=== PATIENT | male | born 1955 | race Caucasian/White ===

== ENCOUNTER 2017-02-23 19:26 | Emergency (ER) | payer OTHER ==
--- NOTE | 2017-02-23 20:17 | ER NURSING DOCUMENTATION ---
Nurse's Notes [facility] Name:Dez Nogueira Age:61 yrs Sex:Male :1955 Arrival Date:02/23/2017 Time:19:26 Bed6 Private MD: Diagnosis:Finger Laceration;Dislocation of Finger Presentation: 02/23 19:36 Acuity: JOE 3 bw2 19:36 Presenting complaint: Patient states: 30 mins ago, working on gutters and slipped and lc fell 4 ft and hit right hand on the house as he fell. no LOC, neck pain or other injury except right hand. Had lac to index finger and dislocation of 5th digit, skin intact. Transition of care: Home. Notified ED Physician of patient's arrival and CC. 19:36 Method Of Arrival: Private Vehicle lc Triage Assessment: 19:38 General: Appears in no apparent distress, Behavior is appropriate for age, cooperative. lc Pain: Complains of pain in dorsal aspect of middle phalanx of right little finger and palmar aspect of middle phalanx of right index finger Pain At worst was 5 out of 10 on a pain scale. Quality of pain is described as dull, throbbing, Pain began 30 min ago Aggravated by increased activity. Musculoskeletal: Circulation, motion, and sensation intact Capillary refill < 3 seconds Range of motion limited in 5TH DIGIT Bony deformity noted of 5TH DIGIT. Injury Description: Laceration sustained to palmar aspect of middle phalanx of right index finger is clean, 0.5 to 2.5 cm long, was sustained 30-60 minutes ago. is bleeding a small amount. Historical: - Allergies: No known drug Allergies; - Home Meds: 1. None - PMHx: None; - PSHx: neck; - Tetanus: < 10 years. - Ebola Screening: : Patient negative for fever greater than or equal to 101.5 degrees Fahrenheit, and additional compatible Ebola Virus Disease symptoms. Patient denies exposure to infectious person. Patient denies travel to an Ebola-affected area in the 21 days before illness onset. No symptoms or risks identified at this time. . - Immunization history: Flu Vaccine < 1 year. - Social history: Smoking status: Patient uses tobacco products, current every day smoker. Screenin:41 Infectious Disease Risk None. Abuse screen: Denies threats or abuse. Denies injuries lc from another. Nutritional screening: No deficits noted. Assessment: 19:41 See Triage Assessment done by same RN. 19:41 Neuro: Level of Consciousness is awake, alert, Oriented to person, place, time, event. Vital Signs: 19:40 BP 154 / 100; Pulse 96; Resp 16; Temp 98.6; Pulse Ox 91% on R/A; Weight 68.04 kg; lc Height 5 ft. 7 in. (170.18 cm); Pain 5/10; 19:40 Body Mass Index 23.49 (68.04 kg, 170.18 cm) ED Course: 19:27 Patient arrived in ED. jt 19:29 Taiwo Arce MD is Attending Physician. hi 19:36 Triage completed. [facility] 19:36 Vilma May RN is Primary Nurse. 19:41 Valuables Remains with patient Patient has correct armband on for positive lc identification. Bed in low position. Call light in reach. Adult w/ patient. 19:45 Port Xray Completed. ms 20:14 Assist Provider Assist provider with laceration repair on palmar aspect of middle lc phalanx of right index finger that was 2.5 cm. or less using sutures. Set up tray. Performed by Taiwo Arce MD Dressed with band aid, Neosporin, Patient tolerated well. Aluminum finger splint applied to PIP of right little finger. Wound care located on palmar aspect of middle phalanx of right index finger was cleaned with soap and water, Patient tolerated well. Administered Medications: 20:01 CANCELLED (Other Intervention Used): Toradol 30 mg IVP once sc 20:01 CANCELLED (Other Intervention Used): Ancef 1 grams IVPB once sc Outcome: 20:08 Discharge ordered by . hi 20:16 Discharged to home ambulatory. 20:16 Condition: good 20:16 Discharge Assessment: Patient awake, alert and oriented x 3. No cognitive and/or functional deficits noted. Patient verbalized understanding of disposition instructions. 20:16 Discharge instructions given to patient, Instructed on discharge instructions, follow up and referral plans. [facility] wound care, Demonstrated understanding of instructions. 20:17 Patient left the ED. Signatures: Vilma May RN RN Taiwo Arce MD MD sc Strickland, Mary ms Tennant, Joanne jt W[facility], [facility]
--- NOTE | 2017-02-23 20:17 | ER PHYSICIAN DOCUMENTATION ---
Physician Documentation [facility] Name:Dez Nogueira Age:61 yrs Sex:Male :1955 Arrival Date:02/23/2017 Time:19:26 Bed6 Private MD: Taiwo Chance Disposition: 02/23/17 20:08 Discharged to Home/Self Care. Impression: Finger Laceration, Dislocation of Finger. - Condition is Good. - Discharge Instructions: DISLOCATED FINGER, FINGER LACERATION - LACERATION, Hand. - Medical Reconciliation form form. - Follow up: Emergency Department; When: 1 week; Reason: Staple/Suture removal. - Problem is new. - Symptoms have improved. HPI: 02/23 20:03 This 61 yrs old Male presents to ER via Private Vehicle with complaints of sc Finger Injury - RIGHT PINKY DEFORMITY AND INDEX FINER LAC. 20:03 The patient or guardian reports deformity, injury, a laceration. The complaints affect sc the right hand diffusely. Context: The problem was sustained at home, resulted from a fall, hit hand on ladder as slid down, denies other injuries except lac to 2nd digit and 5th digit deformity. Onset: The symptom(s)/episode began/occurred just prior to arrival. Associated signs and symptoms: The patient has no apparent associated signs or symptoms. Historical: - Allergies: No known drug Allergies; - Home Meds: 1. None - PMHx: None; - PSHx: neck; - Tetanus: < 10 years. - Ebola Screening: : Patient negative for fever greater than or equal to 101.5 degrees Fahrenheit, and additional compatible Ebola Virus Disease symptoms. Patient denies exposure to infectious person. Patient denies travel to an Ebola-affected area in the 21 days before illness onset. No symptoms or risks identified at this time. . - Immunization history: Flu Vaccine < 1 year. - Social history: Smoking status: Patient uses tobacco products, current every day smoker. ROS: 20:04 Constitutional: Negative for fever, chills, and weight loss. sc Eyes: Negative for injury, pain, redness, and discharge. ENT: Negative for injury, pain, and discharge. Neck: Negative for injury, pain, and swelling. Cardiovascular: Negative for chest pain, palpitations, and edema. Respiratory: Negative for shortness of breath, cough, wheezing, and pleuritic chest pain. Abdomen/GI: Negative for abdominal pain, nausea, vomiting, diarrhea, and constipation. Back: Negative for injury and pain. Skin: Negative for injury, rash, and discoloration. 20:04 Neuro: Negative for headache, weakness, numbness, tingling, and seizure. sc 20:04 MS/extremity: Positive for injury or acute deformity, laceration. Exam: Constitutional: This is a well developed, well nourished patient who is awake, alert, and in no acute distress. Head/Face: Normocephalic, atraumatic. Eyes: Pupils equal round and reactive to light, extra-ocular motions intact. Lids and lashes normal. Conjunctiva and sclera are non-icteric and not injected. Cornea within normal limits. Periorbital areas with no swelling, redness, or edema. Neck: Trachea midline, no thyromegaly or masses palpated, and no cervical lymphadenopathy. Supple, full range of motion without nuchal rigidity, or vertebral point tenderness. No meningismus. Chest/axilla: Normal chest wall appearance and motion. Nontender with no deformity. No lesions are appreciated. Cardiovascular: Regular rate and rhythm with a normal S1 and S2. No gallops, murmurs, or rubs. Normal PMI, no JVD. No pulse deficits. Respiratory: Lungs have equal breath sounds bilaterally, clear to auscultation and percussion. No rales, rhonchi or wheezes noted. No increased work of breathing, no retractions or nasal flaring. Back: No spinal tenderness. No costovertebral tenderness. Full range of motion. 20:04 Skin: Warm, dry with normal turgor. Normal color with no rashes, no lesions, and no sc evidence of cellulitis. 20:04 Musculoskeletal/extremity: Extremities: grossly normal except: laceration, deformity, ROM: limited active range of motion due to pain, limited passive range of motion due to pain, Circulation is intact in all extremities. Sensation intact. 20:08 Skin: Exam negative for acute changes. ct Vital Signs: 19:40 BP 154 / 100; Pulse 96; Resp 16; Temp 98.6; Pulse Ox 91% on R/A; Weight 68.04 kg; lc Height 5 ft. 7 in. (170.18 cm); Pain 5/10; 19:40 Body Mass Index 23.49 (68.04 kg, 170.18 cm) Procedures: 20:05 Reduction: of the PIP of right little finger, using traction, manipulation, Immobilized sc with finger splint, Patient tolerated well. Post reduction film - reveals normal alignment. Laceration: 20:05 Wound Repair of 1cm ( 0.4in ) subcutaneous laceration to palmar aspect of distal sc phalanx of right index finger. Linear shaped.. Minimal bleeding noted.. Distal neuro/vascular/tendon intact. Anesthesia: Digital block administered with 2 mls of 2% lidocaine. Wound prep: Moderate cleansing. Skin closed with 3 4-0 Nylon using Interrupted sutures. Dressed with Bacitracin, bandaid. Patient tolerated well. MDM: 19:29 Patient medically screened. sc 20:06 Differential diagnosis: dislocation. Data reviewed: vital signs, nurses notes, and as a sc result, I will discharge patient. 02/25 11:43 Order name: HAND; [address] [place] [id number] EDMS Dispensed Medications: 20:01 CANCELLED (Other Intervention Used): Toradol 30 mg IVP once sc 20:01 CANCELLED (Other Intervention Used): Ancef 1 grams IVPB once sc Signatures: Vilma May RN RN lc Chew, Scott, MD MD ct
--- NOTE | 2017-02-25 10:51 | RADIOLOGY REPORT ---
Three views of the right hand demonstrate no displaced fracture or dislocation. The visualized joints appear unremarkable. IMPRESSION: No displaced injury is identified. If clinically indicated, further evaluation and/or follow-up may be of benefit. BEATA
== END 2017-02-23 20:17 | disposition home or self-care (01) ==
LOC: ER 19:26
DX: S61.210A Laceration without foreign body of right index finger without damage to nail, initial encounter (principal); S63.286A Dislocation of proximal interphalangeal joint of right little finger, initial encounter; W11.XXXA Fall on and from ladder, initial encounter; Y92.017 Garden or yard in single-family (private) house as the place of occurrence of the external cause; Y93.H9 Activity, other involving exterior property and land maintenance, building and construction; F17.210 Nicotine dependence, cigarettes, uncomplicated
CPT/HCPCS: 12001; 29130; 99284